=== PATIENT | female | born 1990 | race Caucasian/White ===

== ENCOUNTER 2017-12-08 13:11 | Emergency (ER) | payer OTHER ==
[2017-12-08 13:16] VITALS: BP 115/62; PULSE 75; TEMP 98; BMI 23.0
--- NOTE | 2017-12-08 13:47 | PDOC ---
History of Present Illness - General Chief Complaint: Poison [place],Poison [place] Exposure Stated Complaint: SWOLLEN FEET Time Seen by Provider: 12/08/17 13:28 History Source: Patient - History of Present Illness Timing/Duration: reports: other Location: reports: feet Past History - Past Medical History Allergies/Adverse Reactions: Allergies Allergy/AdvReac Type Severity Reaction Status Date / Time No Known Allergies Allergy Verified 12/08/17 13:16 Home Medications: Ambulatory Orders Diphenhydramine HCl [Benadryl Capsule -] 25 mg PO Q6H 08/12/14 Permethrin 5% Topical Cream [Elimite -] 1 applic TP ONCE #1 tube 08/12/14 hydrOXYzine HCL [Atarax -] 50 mg PO TID PRN #21 tablet 08/12/14 Cephalexin [Keflex] 500 mg PO BID #14 capsule 05/25/15 Betamethasone/Propylene Glyc [Betamethasone Dp Aug 0.05% Crm] 50 gm TP BID #1 cream..g. 12/08/17 - Suicide/Smoking/Psychosocial Hx Smoking History: Never smoked Have you smoked in the past 12 months: No Number of Cigarettes Smoked Daily: 0 Information on smoking cessation initiated: No Hx Alcohol Use: No Drug/Substance Use Hx: No Substance Use Type: Alcohol Hx Substance Use Treatment: No Review of Systems - Review of Systems Constitutional: No: Chills, Fever, Malaise Integumentary: Yes: Pruritus, Rash *Physical Exam - Vital Signs Last Vital Signs Temp Pulse Resp BP Pulse Ox 98.0 F 75 16 115/62 100 12/08/17 13:14 12/08/17 13:14 12/08/17 13:14 12/08/17 13:14 12/08/17 13:14 - Physical Exam General Appearance: Yes: Appropriately Dressed. No: Apparent Distress HEENT: positive: Normal Voice Neck: positive: Supple Respiratory/Chest: negative: Respiratory Distress Extremity: positive: Other (Feet minimally swollen, R>L w/ multiple hives throughout dorsum of feet b/l w/ vesicles noted to L heel) Integumentary: positive: Dry, Warm Neurologic: positive: Fully Oriented, Alert, Normal Mood/Affect Medical Decision Making - Medical Decision Making 12/08/17 13:47 27-year-old female, no significant history here with pruritic rash to bilateral feet that started 3 days ago. Patient states several hours before rash started , she had visited the [facility], but does not remember any contact with any plants such as poison [place]ison and no insect bites. Denies any other inciting factors. Patient states she was admitted in 2012 for cellulitis to arm that admitting team thought was secondary to a possible bite. Patient states she feels well otherwise currenrtly w/ no fever or chills See exam Possibly allergic contact dermatitis No known exposure to poison [place]ison, insect bites or other obvious inciting factors Has multiple hive like lesions and vesicles to feet b/l bit no e/o infxn -dc w/ high potency topical steroids, benadryl as needed for home for help w/ pruritis, application of ice -reasons to return to ED d/w pt blisters *DC/Admit/Observation/Transfer Diagnosis at time of Disposition: Rash and nonspecific skin eruption - Discharge Dispostion Disposition: HOME Condition at time of disposition: Good - Prescriptions Prescriptions: Betamethasone/Propylene Glyc [Betamethasone Dp Aug 0.05% Crm] 50 gm TP BID #1 cream..g. - Referrals Referrals: Cesar Martinez MD [Primary Care Provider] - - Patient Instructions Printed Discharge Instructions: Contact Dermatitis Additional Instructions: The cause of your symptoms are possibly allergic such as hives or an allergic contact dermatitis. Take Benadryl at home may help mildly with itching. Apply steroid cream to affected areas as discussed in ED. If symptoms persist and/or worsen, return to ER This is not a contagious condition and you are ok to return to work on Saturday - Post Discharge Activity Forms/Work/School Notes: Back to Work
== END 2017-12-08 14:14 | disposition home or self-care (01) ==
LOC: JERFT 13:11
DX: L29.8 Other pruritus (principal); R21 Rash and other nonspecific skin eruption
CPT/HCPCS: 99281-25